=== PATIENT | female | born 1980 | race Two or more races ===

== ENCOUNTER 2022-06-30 09:40 | Outpatient (CLI) | payer OTHER | END 2022-06-30 09:50 | disposition home or self-care (01) | LOC: PPH VACUNA 09:40 | PROVIDERS: ATTEND Emergency Medicine Pediatric Emergency Medicine | DX: Z23 Encounter for immunization (principal) ==

== ENCOUNTER 2022-12-14 06:00 | Day surgery (SDC) | payer OTHER ==
[2022-12-14] MEDS ORDERED: CARAFATE1 GM/10 ML PO (09:01)
[2022-12-14] MEDS ORDERED: NEXIUM 24HR20 MG PO (09:03)
== END 2022-12-14 10:45 | disposition home or self-care (01) ==
LOC: AMB-ENDOS 06:00
PROVIDERS: ATTEND Surgery
DX: K31.7 Polyp of stomach and duodenum (principal); K21.9 Gastro-esophageal reflux disease without esophagitis; K44.9 Diaphragmatic hernia without obstruction or gangrene; K29.60 Other gastritis without bleeding; R10.13 Epigastric pain; Z20.822 Contact with and (suspected) exposure to COVID-19; I10 Essential (primary) hypertension